=== PATIENT | male | born 1950 | race Caucasian/White ===

== ENCOUNTER 2016-10-12 03:51 | Observation (INO) | payer OTHER ==
[2016-10-12] VITALS (11 sets, daily range): BP systolic 137–235; BP diastolic 77–109; PULSE 70–81; RESP 14–20; TEMP 97.3–98; O2SAT 95–98
[~2016-10-12] VITALS: Ht 172.7 cm; Wt 110.0 kg
[2016-10-12] MEDS ORDERED: DILT120T PO (04:06)
[2016-10-12] MEDS ORDERED: PRIL20CA9 PO (04:06)
[2016-10-12] MEDS ORDERED: ACTIVATED CHARCOAL LIQUID 25 GM/120 ML BTL PO/NG ONE (04:15)
[2016-10-12] MEDS ORDERED: SODIUM CHLORIDE 0.9% FLUSH 5 ML FLUSH IVF PRN (04:15)
[2016-10-12 04:37] LABS: AUTOMATED NEUTROPHIL # 2.4 TH/MM3 (1.8-7.7); BASOPHIL % 0.6 % (0.0-2.0); EOSINOPHIL # 0.2 TH/MM3 (0-0.4); EOSINOPHIL % 4.1 % (0.0-4.0); HEMO FLAGS DIFF FINAL; LYMPHOCYTE # 1.8 TH/MM3 (1.0-4.8); MEAN CELL VOLUME 90.3 FL (80.0-100.0); MEAN CORPUSCULAR HGB CONC 35.4 % (32.0-36.0); NEUT % 46.3 % (16.0-70.0); PLATELET COUNT 164 TH/MM3 (150-450); RED BLOOD COUNT 4.76 MIL/MM3 (4.50-5.90); RED CELL DISTRIBUTION WIDTH 13.2 % (11.6-17.2); WHITE BLOOD COUNT 5.2 TH/MM3 (4.0-11.0)
[2016-10-12 04:46] LABS: INTERNATIONAL NORMALIZED RATIO 0.9 RATIO; PROTHROMBIN TIME - PATIENT 9.7 SEC (9.8-11.6)
--- NOTE | 2016-10-12 05:03 | PD ---
HPI Chief Complaint: OD/ Ingestion Time Seen by Provider: 04:10 Travel History International Travel<30 days: No Contact w/Intl Traveler<30days: No Traveled to known affect area: No History of Present Illness HPI The patient is a 65 year old male who presents to the [facility] emergency department with a history of reportedly accidentally ingesting 3 Cardizem 180 mg long-acting tablets at approximately 3:15 AM. He reports that he normally takes his Cardizem tablet at 2 AM when he awakens urinate, however he usually only takes 1 tablet. The patient reports that he is has been sick recently with a cold and a sore throat, therefore he plans on taking 2 Tylenol. The patient reports that he was groggy and accidentally took 2 more of his Cardizem. He reports that he called poison control and was told to come to the emergency department for evaluation and treatment. The patient's systolic blood pressure on arrival is 220. The patient denies having any other symptoms associated with this. The patient denies any recent fevers, neck pain, chest pain, shortness of breath, abdominal pain, vomiting, diarrhea, urinary symptoms , or neurologic symptoms. [facility]LY [facility] Past Medical History Narrative Medical The patient's past medical history is significant for hypertension, gout, acid reflux. Cardiovascular Problems: Yes (HTN) Cerebrovascular Accident: Yes Diminished Hearing: No GERD: Yes Hypertension: Yes Influenza Vaccination: No Past Surgical History Narrative Surgical The patient's past surgical history is significant for left knee surgery, umbilical hernia repair. Other Surgery: Yes (hernia repair) Social History Alcohol Use: Yes (rarely) Tobacco Use: No Substance Use: No Allergies-Medications (Allergen,Severity, Reaction): Coded Allergies: Penicillin (Verified Allergy, Severe, Edema, 10/12/16) Reported Meds & Prescriptions Reported Meds & Active Scripts Active Reported Diltiazem (Diltiazem HCl) 120 Mg Tab 180 Mg PO HS Prilosec (Omeprazole) 20 Mg Cap 20 Mg PO DAILY Review of Systems Except as stated in HPI: all other systems reviewed are Neg General / Constitutional: No: Fever Eyes: No: Visual changes HENT: No: Headaches Cardiovascular: No: Chest Pain or Discomfort Respiratory: No: Shortness of Breath Gastrointestinal: No: Abdominal Pain Genitourinary: No: Dysuria Musculoskeletal: No: Pain Skin: No Rash Neurologic: No: Weakness, Focal Abnormalities, Change in Mentation, Slurred Speech, Sensory Disturbance Psychiatric: No: Depression Endocrine: No: Polydipsia Hematologic/Lymphatic: No: Easy Bruising Physical Exam Narrative General: The patient is a well-developed well-nourished male in no acute distress. Head and Neck exam: Head is normocephalic atraumatic. Eyes: Pupils are equal round and reactive to light. Nose: Midline septum with pink mucous membranes Mouth: Dentition unremarkable. Moist mucus membranes. Posterior oropharynx is not erythematous. No tonsillar hypertrophy. Uvula midline. Airway patent. Neck: No palpable lymphadenopathy. No nuchal rigidity. No thyromegaly. Cardiovascular: Regular rate and rhythm without murmurs, gallops, or rubs. No pulse deficit to the extremities and simultaneous auscultation and palpation of the radial artery. Lungs: Clear to auscultation bilaterally. No wheezes, rhonchi, or rales. Abdomen: Soft, without tenderness to palpation in all 4 quadrants of the abdomen. No guarding, rebound, or rigidity. Normal bowel sounds are audible. Extremities: No clubbing, cyanosis, or edema. 2+ pulses in all 4 extremities. No calf tenderness on palpation. Back: No spinous process tenderness to palpation. No costovertebral angle tenderness to palpation. Neurologic Exam: Grossly nonfocal. Alert and oriented 4. Skin Exam: No rash noted. Intact skin that is warm and dry. Data Data Last Documented VS Vital Signs Date Time Temp Pulse Resp B/P Pulse Ox O2 Delivery O2 Flow Rate FiO2 10/12/16 05:37 74 18 174/89 96 Room Air 10/12/16 03:53 97.7 Orders Electrocardiogram (10/12/16 04:15) Basic Metabolic Panel (Bmp) (10/12/16 04:15) Complete Blood Count With Diff (10/12/16 04:15) Prothrombin Time / Inr (Pt) (10/12/16 04:15) Chest, Single Ap (10/12/16 04:15) Blood Glucose (10/12/16 04:15) Iv Access Insert/Monitor (10/12/16 04:15) Ecg Monitoring (10/12/16 04:15) Oximetry (10/12/16 04:15) Charcoal Activated Liq (Actidose-Aqua Li (10/12/16 04:15) Sodium Chloride 0.9% Flush (Ns Flush) (10/12/16 04:15) Admit Order (Ed Use Only) (10/12/16 05:48) Place In Observation (10/12/16 ) Vital Signs (Adult) Q4H (10/12/16 05:48) Activity Oob With Assistance (10/12/16 05:48) Clinical Review Nurse / Telemetry .CONTINUOUS (10/12/16 05:48) Diet Heart Healthy (10/12/16 Breakfast) Sodium Chloride 0.9% Flush (Ns Flush) (10/12/16 06:00) Sodium Chloride 0.9% Flush (Ns Flush) (10/12/16 09:00) Naloxone Inj (Narcan Inj) (10/12/16 06:00) Labs Laboratory Tests Test 10/12/16 04:20 White Blood Count 5.2 TH/MM3 Red Blood Count 4.76 MIL/MM3 Hemoglobin 15.2 GM/DL Hematocrit 43.0 % Mean Corpuscular Volume 90.3 FL Mean Corpuscular Hemoglobin 32.0 PG Mean Corpuscular Hemoglobin 35.4 % Concent Red Cell Distribution Width 13.2 % Platelet Count 164 TH/MM3 Mean Platelet Volume 7.9 FL Neutrophils (%) (Auto) 46.3 % Lymphocytes (%) (Auto) 34.0 % Monocytes (%) (Auto) 15.0 % Eosinophils (%) (Auto) 4.1 % Basophils (%) (Auto) 0.6 % Neutrophils # (Auto) 2.4 TH/MM3 Lymphocytes # (Auto) 1.8 TH/MM3 Monocytes # (Auto) 0.8 TH/MM3 Eosinophils # (Auto) 0.2 TH/MM3 Basophils # (Auto) 0.0 TH/MM3 CBC Comment DIFF FINAL Differential Comment Prothrombin Time 9.7 SEC Prothromb Time International 0.9 RATIO Ratio Sodium Level 142 MEQ/L Potassium Level 4.3 MEQ/L Chloride Level 109 MEQ/L Carbon Dioxide Level 26.3 MEQ/L Anion Gap 7 MEQ/L Blood Urea Nitrogen 19 MG/DL Creatinine 0.94 MG/DL Estimat Glomerular Filtration 81 ML/MIN Rate Random Glucose 104 MG/DL Calcium Level 8.5 MG/DL MDM Medical Decision Making Medical Screen Exam Complete: Yes Emergency Medical Condition: Yes Medical Record Reviewed: Yes Interpretation(s) Laboratory Tests Test 10/12/16 04:20 White Blood Count 5.2 TH/MM3 Red Blood Count 4.76 MIL/MM3 Hemoglobin 15.2 GM/DL Hematocrit 43.0 % Mean Corpuscular Volume 90.3 FL Mean Corpuscular Hemoglobin 32.0 PG Mean Corpuscular Hemoglobin 35.4 % Concent Red Cell Distribution Width 13.2 % Platelet Count 164 TH/MM3 Mean Platelet Volume 7.9 FL Neutrophils (%) (Auto) 46.3 % Lymphocytes (%) (Auto) 34.0 % Monocytes (%) (Auto) 15.0 % Eosinophils (%) (Auto) 4.1 % Basophils (%) (Auto) 0.6 % Neutrophils # (Auto) 2.4 TH/MM3 Lymphocytes # (Auto) 1.8 TH/MM3 Monocytes # (Auto) 0.8 TH/MM3 Eosinophils # (Auto) 0.2 TH/MM3 Basophils # (Auto) 0.0 TH/MM3 CBC Comment DIFF FINAL Differential Comment Prothrombin Time 9.7 SEC Prothromb Time International 0.9 RATIO Ratio Sodium Level 142 MEQ/L Potassium Level 4.3 MEQ/L Chloride Level 109 MEQ/L Carbon Dioxide Level 26.3 MEQ/L Anion Gap 7 MEQ/L Blood Urea Nitrogen 19 MG/DL Creatinine 0.94 MG/DL Estimat Glomerular Filtration 81 ML/MIN Rate Random Glucose 104 MG/DL Calcium Level 8.5 MG/DL Last Impressions Chest X-Ray 10/12/16 0415 Signed Impressions: Service Date/Time: Wednesday, October 12, 2016 04:30 - CONCLUSION: No acute disease. Cesar Peralta MD Differential Diagnosis Unintentional Cardizem overdose, versus intentional overdose. Narrative Course During the course of the patients emergency department visit, the patients history, examination, and differential diagnosis were reviewed with the patient. The patient had IV access obtained and blood work sent for analysis. The patient was placed on a telemetry monitor with oximetry and blood pressure monitoring. An EKG was done on arrival. The patient's EKG reveals a sinus rhythm heart rate of 71, borderline left axis deviation, no acute ST segment elevation is noted. T waves are inverted in V1. The patient was provided charcoal 50 g by mouth 1. The patients laboratory studies were reviewed and remarkable for a CBC that is unremarkable, basic metabolic profile shows a chloride of 109, BUN 19, GFR 81, INR is 0.9 Radiology studies were reviewed and remarkable for a chest x-ray that shows no acute disease. Poison control contacted this emergency department regarding the patient's overdose as he did call them prior to arrival. His vital signs were discussed with poison control by the nurse. They instructed that in spite of the patient being stable at this time, the patient will require at least a 12 hour observation due to the long-acting nature of this accidental ingestion. The patients results were discussed with the patient, including the plan of care. I explained that further testing and/ or monitoring is indicated based on the patients history, examination, and/ or laboratory findings. Therefore, I recommended admission for additional evaluation. The patient expressed understanding and was agreeable with this plan. The patient was admitted to the hospital in stable condition and sent to a bed under the care of the [facility]. Physician Communication Physician Communication The patient's case was discussed with Dr. Breaux who did agree to admit the patient for further evaluation and treatment at this time. Diagnosis Primary Impression: Accidental medication overdose Qualified Code: T50.901A - Accidental medication overdose, initial encounter Admitting Information Admitting Physician Requests: Observation Briseyda Polk MD Oct 12, 2016 05:03
[2016-10-12 05:05] LABS: BICARBONATE 26.3 MEQ/L (21.0-32.0); POTASSIUM 4.3 MEQ/L (3.5-5.1)
--- NOTE | 2016-10-12 05:13 | RADRPT ---
EXAM DATE/TIME: 10/12/2016 04:30 [facility] COMPARISON: No previous studies available for comparison. INDICATIONS : Shortness of breath. MEDICAL HISTORY : Hypertension. SURGICAL HISTORY : None. ENCOUNTER: Initial ACUITY: 1 day PAIN SCORE: 0/10 LOCATION: Bilateral chest FINDINGS: A single view of the chest demonstrates the lungs to be symmetrically aerated without evidence of mas s, infiltrate or effusion. The cardiomediastinal contours are unremarkable. Osseous structures are intact. CONCLUSION: No acute disease. Cesar Peralta MD on October 12, 2016 at 5:11 Board Certified Radiologist. This report was verified electronically.
[2016-10-12] MEDS ORDERED: SODIUM CHLORIDE 0.9% FLUSH 5 ML FLUSH FLUSH PRN (06:00)
[2016-10-12] MEDS ORDERED: NALOXONE HCL 0.4 MG/ML AMP IV PRN (06:00)
[2016-10-12] MEDS ORDERED: SODIUM CHLORIDE 0.9% FLUSH 5 ML FLUSH FLUSH SCH (09:00)
--- NOTE | 2016-10-12 11:27 | HHI.HP ---
[facility] Unknown Admission Diagnosis Accidental Cardizem ingestion Diagnoses: Chief Complaint: Accidental ingestion of Cardizem Travel History International Travel<30 Days: No Contact w/Intl Traveler <30 Da: No Traveled to Known Affected Are: No History of Present Illness This is a 65-year-old male with history of hypertension and takes Cardizem for that percent with accidental ingestion of Cardizem.Patient, he has been well until about 2-3 days ago when he started having a dry cough and runny nose. This morning, he woke up at 2 AM and took his Cardizem. He doesn't plan to take Tylenols for his cough and runny nose but he was so groggy that he took 1- 2 more tablets of Cardizem. He denies any dizziness, lightheadedness, nausea, vomiting, chest pain or shortness of breath. There is also no fever, chills, or easy fatigability. Review of Systems ROS Limitations: Other (All other pertinent systems were reviewed and are negative.) Past Family Social History Past Medical History Hypertension CVA GERD Past Surgical History Left knee replacement Umbilical hernia repair Reported Medications Diltiazem (Diltiazem HCl) 120 Mg Tab 180 Mg PO HS Prilosec (Omeprazole) 20 Mg Cap 20 Mg PO DAILY Allergies: Coded Allergies: Penicillin (Verified Allergy, Severe, Edema, 10/12/16) Family History Father had heart problems Social History Patient denies smoking, significant alcohol intake or use of any illicit drugs. Physical Exam Vital Signs Vital Signs Date Time Temp Pulse Resp B/P Pulse Ox O2 Delivery O2 Flow Rate FiO2 10/12/16 09:20 74 10/12/16 07:37 97.3 74 16 137/77 96 10/12/16 06:40 79 18 185/88 96 Room Air 10/12/16 06:01 72 20 171/82 98 Room Air 10/12/16 05:37 74 18 174/89 96 Room Air 10/12/16 05:12 78 18 185/84 98 Room Air 10/12/16 04:50 70 18 200/91 97 Room Air 10/12/16 04:10 71 18 235/109 96 Room Air 10/12/16 03:53 97.7 72 16 197/92 95 Physical Exam Not in distress, well-nourished, looks stated age PERRL, pink conjunctiva without injection, anicteric Nose without bleeding, airway patent, oropharynx clear Supple neck, no masses or thyromegaly, trachea midline Normal rate and regular rhythm, no murmurs gallops or rubs appreciated. Clear to auscultation and symmetric bilaterally, normal respiratory effort. Normal bowel sounds, soft, non-tender, nondistended, no guarding. Extremities without clubbing, cyanosis, or edema. No rash of generalized distribution. Skin is warm and dry. AAO x3, no cranial nerve deficits, moves all 4 extremities, no focal neurologic deficits Normal mood, appropriate affect Laboratory Laboratory Tests Test 10/12/16 04:20 White Blood Count 5.2 Red Blood Count 4.76 Hemoglobin 15.2 Hematocrit 43.0 Mean Corpuscular Volume 90.3 Mean Corpuscular Hemoglobin 32.0 Mean Corpuscular Hemoglobin 35.4 Concent Red Cell Distribution Width 13.2 Platelet Count 164 Mean Platelet Volume 7.9 Neutrophils (%) (Auto) 46.3 Lymphocytes (%) (Auto) 34.0 Monocytes (%) (Auto) 15.0 Eosinophils (%) (Auto) 4.1 Basophils (%) (Auto) 0.6 Neutrophils # (Auto) 2.4 Lymphocytes # (Auto) 1.8 Monocytes # (Auto) 0.8 Eosinophils # (Auto) 0.2 Basophils # (Auto) 0.0 CBC Comment DIFF FINAL Differential Comment Prothrombin Time 9.7 Prothromb Time International 0.9 Ratio Sodium Level 142 Potassium Level 4.3 Chloride Level 109 Carbon Dioxide Level 26.3 Anion Gap 7 Blood Urea Nitrogen 19 Creatinine 0.94 Estimat Glomerular Filtration 81 Rate Random Glucose 104 Calcium Level 8.5 Result Diagram: 10/12/1641910/12/16419 Imaging Last Impressions Chest X-Ray 10/12/16414 Signed Impressions: Service Date/Time: Wednesday, October 12, 2016 04:30 - CONCLUSION: No acute disease. Cesar Peralta MD Assessment and Plan Assessment and Plan This is a 65-year-old male with history of hypertension and CVA who came in after an accidental ingestion of Cardizem. Accidental Cardizem ingestion - EKG reviewed, showed sinus rhythm. Telemetry reviewed, showed sinus rhythm with heart rate in the 80s. The patient was given charcoal. CBC and BMP are unremarkable. Chest x-ray personally reviewed unremarkable. Twice he was contacted, because of the long-acting nature of the Cardizem, he needs at least 12 hour observation. If at the 14 hour to 16 hour jenn, patient is stable, with no hypotension, dizziness or bradycardia, patient will be discharged home and he will also be advised to skip his Cardizem dose tomorrow if patient is bradycardic or borderline hypotensive. Hypertension-restart Cardizem tomorrow as above. GERD-continue Prilosec. DVT prophylaxis: Low risk, SCDs. Discharge patient to home Condition on discharge: Improved Regular Diet as tolerated Ad Nirali activity Rx written: none Follow-up with primary care physician 1 week Sienna Branch MD Oct 12, 2016 11:27
--- NOTE | 2016-10-12 14:20 | EKG ---
Date Performed: 10/12/2016 Time Performed: 04:08:57 PTAGE: 65 years EKG: Sinus rhythm BORDERLINE LEFT AXIS DEVIATION BORDERLINE ECG NO PREVIOUS TRACING DOCTOR: Bin Collazo Interpretating Date/Time 10/12/2016 14:16:36
== END 2016-10-12 17:45 | disposition home or self-care (01) ==
LOC: NEPE 03:51 → NEDA 05:50 → NEPHCDU 06:55
PROVIDERS: ADMIT Hospitalist; ATTEND Hospitalist
DX: T50.901A Poisoning by unspecified drugs, medicaments and biological substances, accidental (unintentional), initial encounter (principal); I10 Essential (primary) hypertension; K21.9 Gastro-esophageal reflux disease without esophagitis; M10.9 Gout, unspecified; R94.31 Abnormal electrocardiogram [ECG] [EKG]; Z86.73 Personal history of transient ischemic attack (TIA), and cerebral infarction without residual deficits; Z96.652 Presence of left artificial knee joint
CPT/HCPCS: 71010; 80048; 85025; 85610; 93005; 99285; G0378

== ENCOUNTER → 2017-10-01 | Outpatient (CLI) | payer MEDICARE, BC ==
[~2017-10-01] MED LIST: ALLO300T2 PO; AMLO5CAP PO; ASPI325T33 PO; BIOTCAP PO; BOSW5TAB PO; COMMODE 3-IN-11 MIS; DILT120T PO; HYDR-3583 PO; OMEG100046 PO; OMEP20TA93 PO; PRIL20CA9 PO; TURM500C7 PO; VITACAP7 PO; WALKER WHEELS/F1 MIS; [UNRECOGNIZED DRUG - CODE] PO
[2017-10-01 12:36] LABS: AUTOMATED NEUTROPHIL # 5.6 TH/MM3 (1.8-7.7); BASOPHIL % 0.5 % (0.0-2.0); EOSINOPHIL # 0.2 TH/MM3 (0-0.4); EOSINOPHIL % 2.7 % (0.0-4.0); HEMATOCRIT 42.3 % (39.0-51.0); HEMOGLOBIN 14.9 GM/DL (13.0-17.0); LYMPH % 21.7 % (9.0-44.0); LYMPHOCYTE # 1.8 TH/MM3 (1.0-4.8); MEAN CELL VOLUME 91.9 FL (80.0-100.0); MEAN CORPUSCULAR HEMOGLOBIN 32.3 PG (27.0-34.0); MEAN CORPUSCULAR HGB CONC 35.1 % (32.0-36.0); MEAN PLATELET VOLUME 7.2 FL (7.0-11.0); MONO % 9.4 % (0.0-8.0); MONOCYTE # 0.8 TH/MM3 (0-0.9); NEUT % 65.7 % (16.0-70.0); PLATELET COUNT 176 TH/MM3 (150-450); RED CELL DISTRIBUTION WIDTH 13.4 % (11.6-17.2); WHITE BLOOD COUNT 8.5 TH/MM3 (4.0-11.0)
[2017-10-01 12:41] LABS: BILIRUBIN, URINE NEG (NEG); BLOOD, URINE TRACE (NEG); GLUCOSE,URINE NEG (NEG); KETONE, URINE NEG (NEG); MUCUS URINE FEW /lpf (OCC); NITRITE,URINE NEG (NEG); PH, URINE 7.5 (5.0-8.5); SQUAMOUS EPITHELIAL CELL URINE <1 /hpf (0-5); URINE COLOR YELLOW (YELLW/STRAW); URINE LEUKOCYTE ESTERASE NEG (NEG)
[2017-10-01 12:44] LABS: INTERNATIONAL NORMALIZED RATIO 0.9 RATIO; PROTHROMBIN TIME - PATIENT 9.6 SEC (9.8-11.6)
[2017-10-01 12:55] LABS: BICARBONATE 26.3 MEQ/L (21.0-32.0); CALCIUM 8.5 MG/DL (8.5-10.1); CREATININE 0.85 MG/DL (0.60-1.30)
--- NOTE | 2017-10-03 00:16 | EKG ---
Date Performed: 10/01/2017 Time Performed: 12:33:08 PTAGE: 66 years EKG: Sinus rhythm BORDERLINE LEFT AXIS DEVIATION BORDERLINE ECG PREVIOUS TRACING : 10/12/2016 04.08 Since the prior tracing, there has been no significant barrett DOCTOR: Patel Valdovinos Interpretating Date/Time 10/03/2017 00:14:22
== END ==
LOC: CPRE 11:56
PROVIDERS: ATTEND Orthopaedic Surgery Orthopaedic Surgery of the Spine
DX: Z01.810 Encounter for preprocedural cardiovascular examination (principal); Z01.812 Encounter for preprocedural laboratory examination; Z79.01 Long term (current) use of anticoagulants; M16.12 Unilateral primary osteoarthritis, left hip; R94.31 Abnormal electrocardiogram [ECG] [EKG]
CPT/HCPCS: 36415; 80048; 81001; 85025; 85610; 85730; 93005

== ENCOUNTER 2017-10-05 05:56 | Inpatient (IN) | payer MEDICARE, BC ==
[~2017-10-05] VITALS: Ht 172.7 cm; Wt 115.5 kg
[~2017-10-05 05:56] MED LIST changes: -ASPI325T33 PO; -COMMODE 3-IN-11 MIS; -DILT120T PO; -HYDR-3583 PO; -PRIL20CA9 PO; -WALKER WHEELS/F1 MIS
[2017-10-05] MEDS ORDERED: VANCOMYCIN 1 GM/200 ML INJ 200 ML IV ONE (06:39)
[2017-10-05] MEDS ORDERED: CHLORHEXIDINE GLUCONATE 2 % 1 PACK (2 CLOTHS) TOPICAL PRN (07:15)
[2017-10-05] MEDS ORDERED: LACTATED RINGER'S 1000 ML IV PRN (07:15)
[2017-10-05] MEDS ORDERED: POVIDONE IODINE 5% (ANTISEPSIS KIT) 4 APPLICATIONS EACH NARE PRN (07:15)
[2017-10-05] MEDS ORDERED: METOPROLOL TARTRATE 25 MG TAB PO PRN (07:15)
[2017-10-05] MEDS ORDERED: CHLORHEXIDINE GLUCONATE 4% SOLN 120 ML BTL TOPICAL SCH (07:30)
[2017-10-05] MEDS ORDERED: EXPAREL PERI-ARTICULAR INJECTION (TOTAL VOL. 60 ML) P-ARTICULR SCH ×2 (07:30)
[2017-10-05] MEDS ORDERED: VANCOMYCIN 1000 MG/NS 250 ML (for <70 kg) IV SCH ×2 (07:30)
[2017-10-05] MEDS ORDERED: GENTAMICIN SULFATE 80 MG/2 ML VIAL ONE (08:24)
[2017-10-05] MEDS ORDERED: SODIUM CHLORIDE 0.9% IV SCH (08:30)
[2017-10-05] MEDS ORDERED: TRANEXAMIC ACID IV SCH (08:30)
[2017-10-05] MEDS ORDERED: ceFAZolin INJ 1,000 MG VIAL ONE (08:54)
[2017-10-05] MEDS ORDERED: ceFAZolin 2 GM PREMIX 50 ML IV SCH (09:00)
[2017-10-05] MEDS ORDERED: GENTAMICIN SULFATE 80 MG/2 ML VIAL IRRIGATION ONE (09:46)
[2017-10-05] MEDS ORDERED: BUPIVACAINE/EPINEPHRINE 0.25% PF 10 ML VIAL ONE (10:45)
[2017-10-05] MEDS ORDERED: BUPIVACAINE/EPINEPHRINE 0.25% 50 ML VIAL ONE (10:45)
[2017-10-05] MEDS: LACTATED RINGER'S 1000 ML INJ 1,000 ML IV SCH ×2 (11:02→20:22)
--- NOTE | 2017-10-05 11:09 | PD.OP ---
cc: Rehan Uribe MD Operative Report Date of Surgery: Oct 05, 2017 Preoperative Diagnosis: Osteoarthritis right hip Postoperative Diagnosis: Same Procedure: Right total hip replacement arthroplasty, direct anterior exposure Anesthesia: Gen. Surgeon: Rehan Uribe Pan Reclaim Processor(s): POWER Nayak Operation and Findings: EBL: 800 cc INDICATION: This patient presents with significant hip pain related to severe osteoarthritis of the right hip. He initiated with care in the [facility] starting over a year ago. He has tried oral anti-inflammatory medications as well as an injection of cortisone into the right hip. Despite extensive conservative care this patient continues to be painful and now presents for surgical treatment. NOTE: Sumaya Nayak PA-C was present for the entire surgical procedure as my pediatric physician assistant. In my medical opinion her skill and care was necessary for the proper management of this patient. COMPONENTS: COMPANY: [employer] CUP: [place], 54, 100 series, gription surface LINER: Altrx 36, neutral STEM: [place], size 9, high offset, hydroxyapatite-coated HEAD: 36 mm, ceramic, +5, 12/14 taper PROCEDURE: This patient was brought to the operating room and anesthetized in the supine position and positioned on the fracture table with both legs held extended. The right hip and leg was scrubbed with alcohol followed by Hibiclens followed by ChloraPrep and draped sterilely. Antibiotics were given within routine time window and a timeout was done. A 4 inch incision was made starting 2 cm distal and 2 cm lateral to the anterior superior iliac spine. The fascia rochelle was opened longitudinally. The interval between the fascia rochelle and the rectus was opened down to the capsule of the hip joint. Retractors were positioned allowing good visualization of the capsule. This was opened longitudinally and flaps were created. Stay sutures were utilized. Exposure was excellent. The neck was cut at the proper location using fluoroscopy as a guide. The head was removed. Deep retractors were positioned allowing good visualization of the acetabulum. Acetabulum was deepened down to the floor starting with a proper size reamer and reaming up to 53 mm. A trial was utilized. Fluoroscopy was used to check position and confirmed satisfactory alignment. The rim was reamed with a 54 mm reamer and the final cup was positioned in approximately 20 of anteversion and 40-45 of abduction. Position was satisfactory. A single hole eliminator was positioned followed by the final liner. The lifting hook was utilized. The leg was dropped to the floor, maximally externally rotated and brought across the midline. Retractors were positioned. A box osteotome was utilized followed by progressive broaching to the proper stem size. Trial reduction showed excellent alignment and fit. With 60 of external rotation the leg was dropped to the floor without evidence of anterior subluxation. The wound was irrigated. The final stem was inserted and was found to be very stable. The final reduction using the final head. Stability was as previously noted. Intraoperative x-rays were taken. The wound was irrigated copiously. Hemostasis was controlled. Local anesthesia was utilized. The capsule was repaired with #2 Tycron sutures. The fascia rochelle was repaired with running 0 PDS on a loop. Subcutaneous tissue was approximated with 2-0 Vicryl and skin with running intradermal 3-0 Vicryl followed by Steri-Strips. A sterile dressing was applied. The patient was awakened and taken to the recovery room in satisfactory condition. FINDINGS: There was severe osteoarthritis of the right hip with remarkable inflammatory changes. The final solution was excellent. There was no complication that was appreciated. Rehan Uribe MD Oct 05, 2017 11:09
[2017-10-05] MEDS ORDERED: ASPI325T33 PO (11:10)
[2017-10-05] MEDS ORDERED: HYDR-3583 PO (11:10)
[2017-10-05] MEDS ORDERED: NALOXONE HCL 0.4 MG/ML AMP IV PUSH PRN (11:15)
[2017-10-05] MEDS ORDERED: ASPIRIN 81 MG CHEW TAB CHEW ONE (11:15)
[2017-10-05] MEDS ORDERED: Post-op Orders (for Pharmacy) XX ONE (11:15)
[2017-10-05] MEDS ORDERED: ACETAMINOPHEN/HYDROcodone 325 MG/10 MG TAB PO PRN (11:15)
[2017-10-05] MEDS ORDERED: MISCELLANEOUS PHARMACY INFORMATION XX ONE (11:15)
[2017-10-05] MEDS ORDERED: MISCELLANEOUS NURSING INFORMATION XX PRN (11:15)
--- NOTE | 2017-10-05 11:49 | RADRPT ---
EXAM DATE/TIME: 10/05/2017 09:46 [facility] COMPARISON: No previous studies available for comparison. INDICATIONS : Right total hip replacement. MEDICAL HISTORY : Hypertension. SURGICAL HISTORY : None. ENCOUNTER: Initial ACUITY: 1 day PAIN SCORE: Non-responsive. LOCATION: Right Hip FINDINGS: 2 magnified C. arm spot views are centered over the hip and labeled right. There is a total hip prost hesis in good position. No gross fracture on this style of acquisition. Air is noted within the joint . CONCLUSION: Total hip prosthesis in good position. Kumar Rangel Jr., MD on October 05, 2017 at 11:45 Board Certified Radiologist. This report was verified electronically.
[2017-10-05] MEDS ORDERED: MIDAZOLAM HCL 2 MG/2 ML VIAL ONE (11:51)
[2017-10-05] MEDS ORDERED: MORPHINE SULFATE 4 MG/ML INJ ONE (11:52)
[2017-10-05] MEDS ORDERED: NEOSTIGMINE 5 MG/5 ML SYRINGE IV PUSH ONE (12:00)
[2017-10-05] MEDS ORDERED: GLYCOPYRROLATE 1 MG/5 ML SYRINGE IV PUSH ONE (12:00)
[2017-10-05] MEDS ORDERED: ONDANSETRON HCL 4 MG/2 ML VIAL IV ONE (12:00)
[2017-10-05] MEDS ORDERED: DEXAMETHASONE SOD PHOS 4 MG/ML VIAL IV ONE (12:00)
[2017-10-05] MEDS ORDERED: PROPOFOL 200 MG/20 ML AMP IV ONE (12:00)
[2017-10-05] MEDS ORDERED: LACTATED RINGER'S 1000 ML INJ 2,000 ML IV ONE (12:00)
[2017-10-05] MEDS ORDERED: ROCURONIUM INJ 50 MG/5 ML SYRINGE IV PUSH ONE (12:00)
[2017-10-05] MEDS ORDERED: ePHEDrine/NS 25 MG/5 ML SYRINGE IV ONE (12:00)
[2017-10-05] MEDS ORDERED: ESMOLOL HCL 100 MG/10 ML VIAL IV ONE (12:00)
[2017-10-05] MEDS ORDERED: LIDOCAINE HCL 1% PF 5 ML SYRINGE OTHER ONE (12:00)
[2017-10-05] MEDS ORDERED: PHENYLEPH/NS 1000 MCG/10 ML SYR IV ONE (12:00)
[2017-10-05] MEDS ORDERED: SODIUM CHLORIDE 0.9% 20 ML VIAL IV ONE (12:00)
[2017-10-05] MEDS ORDERED: *morphine SULFATE 10 MG/ML PERIprocedure ONLY ONE (12:41)
[2017-10-05] MEDS ORDERED: DO NOT ADM ANY ANTICOAGULANT DRUGS PRN (13:15)
[2017-10-05 16:00] VITALS: BP 130/70; PULSE 91; RESP 18; TEMP 96.3; O2SAT 95
[2017-10-05] MEDS: MORPHINE SULFATE 8 MG/ML INJ IM PRN ×2 (16:05→20:27)
[2017-10-05] MEDS: ACETAMINOPHEN/HYDROcodone 325 MG/10 MG TAB PO PRN ×2 (16:43→22:50)
[2017-10-05 20:00] VITALS: BP 159/79; PULSE 92; RESP 16; TEMP 98.4; O2SAT 99
[2017-10-05] MEDS: SENNOSIDES 8.6 MG TAB PO SCH (20:20)
[2017-10-05] MEDS: MAGNESIUM HYDROXIDE SUSP 30 ML CUP PO SCH (20:20)
[2017-10-05] MEDS: ASPIRIN EC 325 MG TABEC PO SCH (20:21)
[2017-10-05 21:22] VITALS: O2SAT 95
[2017-10-06] VITALS (7 sets, daily range): BP systolic 127–152; BP diastolic 69–86; PULSE 86–98; RESP 16–18; TEMP 97.2–100.1; O2SAT 94–98
[2017-10-06] MEDS: ACETAMINOPHEN/HYDROcodone 325 MG/10 MG TAB PO PRN ×5 (03:07→22:15)
[2017-10-06] MEDS: MAGNESIUM HYDROXIDE SUSP 30 ML CUP PO SCH ×2 (07:56→20:04)
[2017-10-06] MEDS: LISINOPRIL 10 MG TAB PO SCH (07:56)
[2017-10-06] MEDS: amLODIPine BESYLATE 5 MG TAB PO SCH (07:56)
[2017-10-06] MEDS: ALLOPURINOL 300 MG TAB PO SCH (07:56)
[2017-10-06] MEDS: PANTOPRAZOLE SOD 20 MG DELAYED RELEASE TAB PO SCH (07:56)
[2017-10-06] MEDS: ASPIRIN EC 325 MG TABEC PO SCH ×2 (09:00→20:04)
[2017-10-06 10:10] LABS: HEMATOCRIT 34.8 % (39.0-51.0); HEMOGLOBIN 12.2 GM/DL (13.0-17.0)
[2017-10-06] MEDS: LACTATED RINGER'S 1000 ML INJ 1,000 ML IV SCH ×2 (12:02→20:05)
[2017-10-06] MEDS ORDERED: WALKER WHEELS/F1 MIS (13:32)
[2017-10-06] MEDS ORDERED: COMMODE 3-IN-11 MIS (13:33)
--- NOTE | 2017-10-06 13:35 | HHI.DCPOC ---
Discharge Care Plan Diagnosis: (1) Osteoarthritis of right hip Your Health Problems Are: Difficulty with ADL Incision/Drains Inflammation Goals to Promote Your Health * To prevent worsening of your condition and complications * To maintain your health at the optimal level Directions to Meet Your Goals Take your medications as prescribed Follow your dietary instruction Follow activity as directed Keep your appointments as scheduled Take your immunizations and boosters as scheduled If your symptoms worsen call your PCP, if no PCP go to Urgent Care Center or Emergency Room Smoking is Dangerous to Your Health. Avoid second hand smoke Call the 24-hour hour crisis hotline for domestic abuse at Rosemarie Rios Oct 06, 2017 13:35
--- NOTE | 2017-10-06 13:35 | HHI.FF ---
Face to Face Verification Diagnosis: (1) Osteoarthritis of right hip Physical Therapy Gait training, Safety evaluation, Transfer training, bed to chair Hip: Total hip, Protocol: Right, Progress to weight bearing Right LE Weight Bearing: WB as tolerated Additional Instructions PT 4 days/wk for 2 weeks. WBAT RLE. Anterior TANMAY precautions. Walker as needed. Nursing RN Days per Week: 2 x Week(s): 1 Dressing Changes: Do not change dressing Additional Instructions Vitals assessment. Dressing assessment - do not change unless saturated. I have seen patient Taye Boateng on 10/06/17. My clinical findings support the need for the requested home health care services because: Limited ability to care for self High risk of falls I certify that my clinical findings support that this patient is homebound because: Post-op weakness Unsteady gait/balance Rosemarie Rios Oct 06, 2017 13:35
--- NOTE | 2017-10-06 13:38 | PD.ORT.PN ---
Subjective Subjective Remarks Doing 'ok'. Moderate pain but meds help. Had an episode this morning during PT of feeling lightheaded. he did not pass out. Urinating. Questions about surgery. Objective Vitals Vital Signs Date Time Temp Pulse Resp B/P (MAP) Pulse Ox O2 Delivery O2 Flow Rate FiO2 10/06/17 12:00 99.0 86 18 127/71 (89) 98 10/06/17 09:42 Nasal Cannula 4.00 10/06/17 08:00 97.2 86 18 150/74 (99) 96 10/06/17 04:00 98.2 91 16 152/80 (104) 97 10/06/17 00:00 97.7 98 16 150/86 (107) 98 10/05/17 21:22 95 Nasal Cannula 4.00 10/05/17 20:19 99 Nasal Cannula 2.00 10/05/17 20:00 98.4 92 16 159/79 (105) 99 10/05/17 16:00 96.3 91 18 130/70 (90) 95 10/05/17 15:30 98.3 77 20 99/55 (70) 95 Nasal Cannula 4 10/05/17 14:00 82 20 125/59 (81) 95 Nasal Cannula 4 I/O 10/05/17 10/05/17 10/05/17 10/06/17 10/06/17 10/06/17 07:00 15:00 23:00 07:00 15:00 23:00 Intake Total 2500 ml 100 ml 2000 ml Output Total 1000 ml Balance 1500 ml 100 ml 2000 ml Intake Oral 900 ml IV Total 100 ml 1100 ml Other 2500 ml Output Urine Total 200 ml Estimated Blood Loss 800 ml # Voids 2 Result Diagram: 10/06/17 0855 Objective Remarks Sitting up in bed NAD With RLE Dressing c/d/i, minimal drainage, mild swelling and warmth, no erythema +motor at, +sens, +nvi Neg homans Assessment & Plan Ortho Post Op Day #: 1 Problem List: Assessment and Plan pod#1 s/p R TANMAY, anterior Ortho stable. Hx of hypotension this AM but last 2 measurements normal. PT - WBAT RLE. Anterior TANMAY. [place] 10mg for pain control. ASA 81mg bid for 30 days. Hold dressing changes unless saturated. D/C planning, HHC today or tomorrow. DME written. Rosemarie Rios Oct 06, 2017 13:38
[2017-10-06] MEDS: SENNOSIDES 8.6 MG TAB PO SCH (20:04)
[2017-10-07] VITALS: BP 136/69; PULSE 88; RESP 16; TEMP 96.7; O2SAT 98
[2017-10-07] MEDS: ACETAMINOPHEN/HYDROcodone 325 MG/10 MG TAB PO PRN ×2 (02:13→09:22)
[2017-10-07 07:40] VITALS: BP 128/60; PULSE 89; RESP 19; TEMP 97.2; O2SAT 92
[2017-10-07 08:43] VITALS: O2SAT 96
--- NOTE | 2017-10-07 08:55 | HHI.DS ---
Discharge Summary Admission Date Oct 05, 2017 at 05:56 Discharge Date: Oct 07, 2017 Admitting Diagnosis see below Diagnosis: (1) Osteoarthritis of right hip Diagnosis: Principal ICD Codes: M16.11 - Unilateral primary osteoarthritis, right hip Procedures Right total hip arthroplasty, direct anterior approach Brief History This is a 66 year old male patient CBC/BMP: 10/06/17 0855 Significant Findings Laboratory Tests Test 10/06/17 08:55 Hemoglobin 12.2 GM/DL (13.0-17.0) Hematocrit 34.8 % (39.0-51.0) PE at Discharge Sitting up in bed NAD With RLE Dressing c/d/i, minimal drainage, mild swelling and warmth, no erythema +motor at, +sens, +nvi Neg homans Hospital Course Surgical treatment was performed on the day of admission without complication. He recovered well in PACU and was transferred to the orthopaedic floor. Pain was controlled with IV and oral medications. DVT prophylaxis was initiated pod#! . He was compliant with his precautions and use of his CPM. He had an episode of lightheadedness pod#1. After 2 days he was found to be stable and discharged home with home health care. He was encouraged to pursue a high fiber diet for 48 hours, to ice and elevate the affected limb for 10-14 days postop, and to continue his knee brace at night for 2-3 weeks. He was given prescriptions of [place] 10mg and ASA 81mg twice daily. Pt Condition on Discharge: Stable Discharge Disposition: Disch w/ Home Health Serv Discharge Instructions Diet Instructions: As Tolerated, No Restrictions, High Fiber Diet Activities You Can Perform: Weight Bearing as Chuck Activities to Avoid: Strenuous Activity New Medications: Commode 3-in-1 (Commode 3-in-1) 1 Mis Mis EA .XX DIRECTED, #1 0 Refills Walker with Front Wheels (Walker with Front Wheels) 1 Mis Mis EA .XX DIRECTED, #[address] (Aspirin EC) 325 Mg Tabdr 81 MG PO BID for Prevent Blood Clot, #60 TAB Hydrocodone/Acetaminophen (Hydrocodone-Acetamin 10-325 mg) 10 Mg-325 Mg Tablet 1 TAB PO Q4H PRN for Pain, #50 TAB Continued Medications: Allopurinol (Allopurinol) 300 Mg Tab 300 MG PO DAILY for Gout, #30 TAB 0 Refills Amlodipine-Benazepril (Amlodipine-Benazepril) 5-10 Mg Cap 1 CAP PO DAILY for Blood Pressure Management, #30 CAP 0 Refills B-Complex Vitamins (B Complex) 1 Cap 1 CAP PO DAILY for Nutritional Supplement, #30 CAP 0 Refills Biotin (Biotin) 5 Mg Cap 2.5 MG PO for Nutritional Supplement, #1 BOTTLE 0 Refills Gyocnzher-Eoywguwysos-Fxlqqwn (Osteo Bi-Flex One A Day) 1 Tab 1 TAB PO DAILY, TAB Devil's Claw (Harpagophytum Procumbens) Bulk (Devil's Claw (Harpagophytum Procumbens) Bulk) 1 Powd 1 CAP PO DAILY [place]-3/Dha/Epa/Fish Oil (Fish Oil 1,000 mg Softgel) 1,000 Mg (120 Mg-180 Mg) Capsule 1 CAP PO DAILY Omeprazole (Omeprazole) 20 Mg Tab 20 MG PO DAILY, #30 TAB 0 Refills Turmeric Root Extract (Turmeric) 500 Mg Capsule 1000 CAP PO DAILY Rosemarie Rios Oct 07, 2017 08:55
--- NOTE | 2017-10-07 08:57 | PD.ORT.PN ---
Subjective Subjective Remarks Doing better than yesterday. No further episodes of feeling like he is going to pass out. Energy is poor. Appetite ok. No new leg pain. No CP or SOB. Ready for d/c home today. Objective Vitals Vital Signs Date Time Temp Pulse Resp B/P (MAP) Pulse Ox O2 Delivery O2 Flow Rate FiO2 10/07/17 07:40 97.2 89 19 128/60 (82) 92 10/07/17 00:00 96.7 88 16 136/69 (91) 98 10/06/17 21:55 95 Nasal Cannula 4.00 10/06/17 20:00 100.1 93 16 141/71 (94) 95 10/06/17 16:00 97.7 91 18 137/69 (91) 94 10/06/17 12:00 99.0 86 18 127/71 (89) 98 10/06/17 09:42 Nasal Cannula 4.00 I/O 10/06/17 10/06/17 10/06/17 10/07/17 10/07/17 10/07/17 07:00 15:00 23:00 07:00 15:00 23:00 Intake Total 2000 ml 600 ml Output Total 1000 ml Balance 2000 ml -400 ml Intake Oral 900 ml 600 ml IV Total 1100 ml Output Urine Total 1000 ml # Voids 2 # Bowel Movements 0 Result Diagram: 10/06/17 0855 Procedures Right total hip arthroplasty, direct anterior approach Objective Remarks Laying in bed NAD RLE Dressing c/d/i, no new drainage, mild swelling and warmth, no erythema +motor at, +sens, +nvi Neg homans Assessment & Plan Ortho Post Op Day #: 2 Problem List: (1) Osteoarthritis of right hip ICD Codes: M16.11 - Unilateral primary osteoarthritis, right hip Qualifiers: Qualified Codes: M16.11 - Unilateral primary osteoarthritis, right hip Assessment and Plan pod#2 s/p R TANMAY, anterior Ortho stable. Ok for d/c home w c later today after PT. PT - WBAT RLE. Anterior TANMAY. [place] 10mg for pain control. ASA 81mg bid for 30 days. Hold dressing changes unless saturated. F/U in 2 weeks as scheduled. DME written. Rosemarie Rios Oct 07, 2017 08:56
[2017-10-07] MEDS: PANTOPRAZOLE SOD 20 MG DELAYED RELEASE TAB PO SCH (09:23)
[2017-10-07] MEDS: LISINOPRIL 10 MG TAB PO SCH (09:23)
[2017-10-07] MEDS: amLODIPine BESYLATE 5 MG TAB PO SCH (09:24)
[2017-10-07] MEDS: ASPIRIN EC 325 MG TABEC PO SCH (09:24)
[2017-10-07] MEDS: MAGNESIUM HYDROXIDE SUSP 30 ML CUP PO SCH (09:24)
[2017-10-07] MEDS: ALLOPURINOL 300 MG TAB PO SCH (09:24)
[2017-10-07] MEDS ORDERED: ACETAMINOPHEN 500 MG CPLT PO PRN (09:30)
[2017-10-07 12:00] VITALS: BP 140/68; PULSE 90; RESP 18; TEMP 99.3; O2SAT 97
[2017-10-07] MEDS: LACTATED RINGER'S 1000 ML INJ 1,000 ML IV SCH (13:02)
== END 2017-10-07 14:05 | disposition home health service (06) | DRG 470 ==
LOC: HSDI 05:56 → N06B 15:51
PROVIDERS: ADMIT Orthopaedic Surgery Orthopaedic Surgery of the Spine; ATTEND Orthopaedic Surgery Orthopaedic Surgery of the Spine
PROC: 0SR904A Replacement of Right Hip Joint with Ceramic on Polyethylene Synthetic Substitute, Uncemented, Open Approach (ICD-10-PCS; principal; 2017-10-05 08:47)
DX: M16.11 Unilateral primary osteoarthritis, right hip (principal); I95.9 Hypotension, unspecified; E66.9 Obesity, unspecified; I10 Essential (primary) hypertension; K21.9 Gastro-esophageal reflux disease without esophagitis; Z68.38 Body mass index [BMI] 38.0-38.9, adult
CPT/HCPCS: 73502; 76000; 85014; 85018; 86850; 86900; 86901; 86920; 94150; C1776; J0690; J1100; J1580; J2250; J2270; J2370; J2405; J2710; J3010; J3370; J7050; J7120